=== PATIENT | male | born 1965 | race Caucasian/White ===

== ENCOUNTER 2024-05-24 09:06 | Emergency (ER) | payer OTHER, SELFPAY ==
--- NOTE | ~2024-05-24 | XR_ITS ---
EXAMINATION: XR finger 1st LT min 2V DATE: 05/24/2024 10:33 INDICATION: Left thumb injury TECHNIQUE: Dorsal palmar, lateral and 2 oblique views of the left first digit were obtained COMPARISON: None FINDINGS: Bone alignment is normal. No fracture. Mild polyarticular osteoarthritis at the first carpal metacarp al and the visualized interphalangeal joints including the first interphalangeal joint. IMPRESSION: 1. Typical distribution of mild polyarticular osteoarthritis in the visualized left hand. No acute os seous abnormality. Reviewed, dictated and finalized at location A. [facility] IMPRESSION: 1. Typical distribution of mild polyarticular osteoarthritis in the visualized left hand. No acute osseous abnormality.
[2024-05-24 10:18] VITALS: BP 114/71; PULSE 72; RESP 16; TEMP 36.3; O2SAT 98
--- NOTE | 2024-05-24 10:50 | ED.GENADULT ---
HPI - General Adult General Chief complaint: Extremity Injury, Upper Stated complaint: L THUMB INJURY Time Seen by Provider: 05/24/24 10:50 Source: patient Mode of arrival: ambulatory Limitations: no limitations History of Present Illness HPI narrative: 58-year-old male patient presents to the [facility] with complaints of left thumb pain. Patient states that he was opening some boxes at work today and states that he overextended his left thumb and heard something pop. Denies using any ice or taking any Tylenol ibuprofen prior to arrival today. Patient states that the incident happened about a.m. this morning. Related Data Home Medications ?Medication ?Instructions ?Recorded ?Confirmed ?Last Taken ?Type No Home Medications 05/24/24 05/24/24 Unknown History Allergies Allergy/AdvReac Type Severity Reaction Status Date / Time Penicillins Allergy Mild Hives Verified 05/24/24 10:20 Sulfa (Sulfonamide Allergy Mild Hives Verified 05/24/24 10:20 Antibiotics) Review of Systems Review of Systems: CONSTITUTIONAL: Denies fever, chills, or sweats. EYES: Denies visual changes, redness, or discharge. ENT: Denies rhinorrhea, congestion, sore throat, or otalgia. CARDIOVASCULAR: Denies chest pain, palpitations, or edema. RESPIRATORY: Denies cough or dyspnea. GASTROINTESTINAL: Denies abdominal pain, nausea, vomiting, or diarrhea. GENITOURINARY: Denies dysuria or hematuria. SKIN: Denies rash or itching. MUSCULOSKELETAL: Denies back pain, joint pain, or myalgia. Positive left thumb pain. NEUROLOGIC: Denies headache, numbness, or weakness. PSYCHIATRIC: Denies anxiety or depression. [facility] Past Medical History Medical History (Updated 05/24/24 @ 11:03 by SALIMA Cohen) No significant past medical history Comments At the time of my signature I agree with nursing past medical history, surgical, social, and family history. There is no relevant family history pertinent to the presenting complaint. Exam Narrative: GENERAL: Well-appearing, well-nourished, and in no acute distress. HEAD: Normocephalic, atraumatic. EYES: PERRLA and EOMI. ENT: Nares clear, no rhinorrhea or epistaxis. Mucous membranes moist. NECK: Supple. No lymphadenopathy CHEST: Clear to auscultation. No respiratory distress. HEART: Regular rate and rhythm. No murmur heard. Normal peripheral pulses. ABDOMEN: Soft, nontender, nondistended, normal active bowel sounds. EXTREMITIES: The L thumb is without obvious asymmetry or deformity when compared to the R thumb. swelling noted to the left thumb, noerythema, atrophy, or obvious deformity. No surface trauma, open wounds, nail avulsion, tissue avulsion, partial or complete amputation, subungual hematoma, bony deformity. decreased cascade of left. decreased flexion of left thumb, normal extension of fingers. FDS and FDP intact aganist restistance. No focal fullness, thobbing pain, swelling of fingertip. tenderness to palpation over the PIP joint of the left thumb. 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 SKIN: Warm, dry, no rash. NEURO: No focal deficits. Alert and oriented x3. Course Course Level of Care: Express Care Visit Vital Signs Vital signs: Vital Signs Temperature 36.3 C L 05/24/24 10:18 Pulse Rate 72 05/24/24 10:18 Respiratory Rate 16 05/24/24 10:18 Blood Pressure 114/71 05/24/24 10:18 Pulse Oximetry 98 05/24/24 10:18 Temperature 36.3 C L 05/24/24 10:18 Pulse Rate 72 05/24/24 10:18 Respiratory Rate 16 05/24/24 10:18 Blood Pressure 114/71 05/24/24 10:18 Pulse Oximetry 98 05/24/24 10:18 Vital signs reviewed. Medical Decision Making MDM Narrative Medical decision making narrative: Discussed with patient that his x-ray is negative for any acute fractures. Discussed with patient he most likely has a sprain to left thumb which I would highly recommend that he ice the area for 20 minutes every hour for the least the next 2 days. Discussed with patient we will wrap it with an Pantera wrap and he can take Tylenol and ibuprofen for pain. Patient should try an elevated as much as he can and I will put him on some restrictions for the next 5 days if this does not improve the next 3-5 days he is to follow-up with ortho for further evaluation of a tendon or ligament injury. Patient verbalized understanding denies any other questions or concerns at this time. Differential Diagnosis Differential Diagnosis: Differential diagnosis: Paronychia, felon, cellulitis, flexor tenosynovitis, mallet finger, boutonniere deformity, flexor tendons, dislocated digits, unstable fracture, unstable ligamentous injury, closed space infection, carpal tunnel syndrome, contusion. Vital Signs Vital Signs: Vital Signs Temperature 36.3 C L 05/24/24 10:18 Pulse Rate 72 05/24/24 10:18 Respiratory Rate 16 05/24/24 10:18 Blood Pressure 114/71 05/24/24 10:18 Pulse Oximetry 98 05/24/24 10:18 Temperature 36.3 C L 05/24/24 10:18 Pulse Rate 72 05/24/24 10:18 Respiratory Rate 16 05/24/24 10:18 Blood Pressure 114/71 05/24/24 10:18 Pulse Oximetry 98 05/24/24 10:18 Imaging Data Radiologist's impression: [place] [id number] [facility] [place] [address] XRay Report Signed Patient: Curtis Oliva : 1965 MR#: [id number] Age: 58 Acct:[id number] Loc: [id number] ADM Date: 05/24/24Attending Dr: Ordering Physician: Oneyda Salmeron APRN Date of Service: 05/24/24 Procedure(s): XR finger 1st LT min 2V Accession Number(s): [id number] cc: Aiden Valenzuela MD; Oneyda Salmeron PHOTOGRAPH DEVELOPER~ EXAMINATION: XR finger 1st LT min 2V DATE: 05/24/2024 10:33 INDICATION: Left thumb injury TECHNIQUE: Dorsal palmar, lateral and 2 oblique views of the left first digit were obtained COMPARISON: None FINDINGS: Bone alignment is normal. No fracture. 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 IMPRESSION: 1. Typical distribution of mild polyarticular osteoarthritis in the visualized left hand. No acute osseous abnormality. Reviewed, dictated and finalized at location A. PTION CLERK Please be advised this is a medical document. It is intended for [id number] communication. It is written in medical language and may contain unfamiliar abbreviations or verbiage. Medical documents are intended to carry relevant information, facts as evident, and the clinical opinion of the practitioner at the time of the encounter. This report may have been done utilizing a voice recognition system. Attempts have been made to correct errors. However, there may be uncorrected grammatical, spelling, and recognition errors present. The file time of this note does not necessarily represent the time of service. Dictated By: Adria Lopez MD 05/24/24 1037 Signed By: <Electronically signed by Adria Lopez MD in OV> Critical Care Time Critical Care Time Critical Care Time: No Discharge Plan Discharge Clinical Impression: Other sprain of left thumb, initial encounter Patient Disposition: Home, Self-Care Condition: Stable Instructions: Antibiotic Form, Finger Sprain (ED) Additional Instructions: Avoid weight bearing until the pain subsides. Ice to the area 20-30 minutes 4-6 times a day Elevate above heart Elastic wrap or orthopedic splint as directed for comfort for the next 5-7 days Tylenol for lesser pain Ibuprofen regularly for the next 2-3 days for the inflammation Follow up with your primary care provider if the condition is not improving within 1 week or sooner if the Condition worsens with numbness, tingling, decrease sensation with weakness to seek ER. Patient Language: Slovenian Prescriptions: No Action No Home Medications Follow-up/Referrals: Miguel Angel Parra MD [Physician] - Aiden Valenzuela MD [Primary Care Provider] - Stand Alone Forms: Work/School Release IP Time of Disposition: 11:00
== END 2024-05-24 11:15 | disposition home or self-care (01) ==
PROVIDERS: Emergency Provider Nurse Practitioner Family; PCP Family Medicine
DX: S63.602A Unspecified sprain of left thumb, initial encounter (principal); X58.XXXA Exposure to other specified factors, initial encounter; M19.042 Primary osteoarthritis, left hand
CPT/HCPCS: 73140; 99203; G0463